=== PATIENT | female | born 1995 | race African-American/Black ===

== ENCOUNTER 2020-02-04 08:30 | Inpatient (IN) ==
[2020-02-08] MEDS ORDERED: ceFAZolin 2,000 MG in PREMIX 1 EACH IV ONE (07:01)
[2020-02-08] MEDS ORDERED: EPINEPHrine 1 MG/ML VIAL ONE (07:01)
[2020-02-08] MEDS ORDERED: DEXAMETHASONE 4 MG/1 ML VIAL ONE (07:01)
[2020-02-08] MEDS ORDERED: BUPIVACAINE SPINAL 0.75% 2 ML AMP SPINAL ONE (07:01)
[2020-02-08] MEDS ORDERED: CITRIC ACID/SODIUM CITRATE 30 ML UDCUP PO ONE (07:01)
[2020-02-08] MEDS ORDERED: BUPIVACAINE MPF 0.25% 30 ML VIAL ONE (07:01)
[2020-02-08] MEDS ORDERED: OXYTOCIN 10 UNIT/ML VIAL IM ONE (07:05)
[2020-02-08] MEDS ORDERED: OXYTOCIN/LR 30 UNIT/1,000 ML BAG IV ONE (07:05)
[2020-02-08] MEDS ORDERED: ONDANSETRON 4 MG/2 ML VIAL ONE (07:07)
[2020-02-08] MEDS ORDERED: LACTATED RINGERS 1,000 ML IV ONE (07:15)
[2020-02-08] MEDS ORDERED: FAMOTIDINE 20 MG/2 ML VIAL IV ONE (07:23)
[2020-02-08 07:28] LABS: Basophils # 0.1 10*3/uL (0.0-0.2); Basophils % 0.4 % (0.0-0.8); Eosinophils # 0.3 10*3/uL (0.0-0.87); Eosinophils % 2.5 % (0.00-10.9); Hematocrit 33.2 VOL% (35.7-47.0); Hemoglobin 10.3 GM/DL (12.0-16.0); Immature Granulocytes % 1.9 %; Immature Granulocytes Absolute 0.26 #; Lymphocytes # 2.9 10*3/uL (1.4-4.0); Lymphocytes % 21.5 % (21.3-54.2); Mean Corpuscular Volume 88.5 FL (87-102); Mean Platelet Volume 11.5 FL (9.6-12.0); Monocytes % 16.2 % (1.7-12.7); Neutrophils % 57.5 % (38.7-73.9); Platelet Count 195 T/CUMM (130-400); Red Blood Count 3.75 MC/CUMM (3.8-5.5); Red Cell Distribution Width 13.8 % (9.3-17.3); White Blood Count 13.4 T/CUMM (4-12)
[2020-02-08] MEDS ORDERED: LACTATED RINGERS 1,000 ML IV SCH ×2 (07:30→10:00)
[2020-02-08 07:40] LABS: Alanine Aminotransferase 35 U/L (13-56); Albumin 2.7 G/DL (3.4-5.0); Alkaline Phosphatase 149 U/L (45-117); Aspartate Amino Transferase 24 U/L (0-37); Bilirubin,Total < 0.39 MG/DL (0.2-1.0); Blood Urea Nitrogen 6 MG/DL (7-18); Calcium 8.6 MG/DL (8.5-10.1); Estimated Glom Filtration Rate 162 ML/MIN; Glucose 92 MG/DL (74-106); Osmolality,Calculated 272.7 MOS/KG (273-304)
[2020-02-08 07:46] LABS: Band Neutrophils 1 % (0-10); Eosinophils 7 % (0-10); Hypochromasia 1+; Lymphocytes 15 % (20-55); Platelet Estimate Adequate; Segmented Neutrophils 62 % (50-85); Total Cells Counted 100
[2020-02-08 07:47] LABS: Microcytosis Slight
[2020-02-08 09:36] LABS: Cord Arterial Blood HCO3 20.5 MMOL/L
[2020-02-08 09:41] LABS: Cord Venous Blood HCO3 21.1 MMOL/L; Cord Venous Blood PCO2 51.3 MMHG; Cord Venous Blood PO2 21.9
[2020-02-08] MEDS ORDERED: OXYTOCIN/LR 20 UNIT/1,000 ML BAG IV ONE (09:45)
[2020-02-08] MEDS ORDERED: ACETAMINOPHEN 325 MG TABLET PO PRN (09:45)
[2020-02-08] MEDS ORDERED: ONDANSETRON 4 MG/2 ML VIAL IV PRN (09:45)
[2020-02-08] MEDS ORDERED: SIMETHICONE CHEW 80 MG TABLET PO PRN (09:45)
[2020-02-08] MEDS ORDERED: RHO(D) IMMUNE GLOBULIN 300 MCG SYRINGE IM ONE (09:45)
[2020-02-08 09:48] LABS: Apearance,Urine CLEAR (Clear); Bilirubin,Urine Negative (Negative); Blood, Urine Negative (Negative); Glucose,Urine (UA) Negative (Negative); Ketones,Urine Negative (Negative); Mucus,Urine Occasional /LPF (Occasional); Nitrite,Urine Negative (Negative); Protein,Urine Negative; RBC,Urine 1 /HPF (0-4); Squamous Epithelial Cell,Urine Occasional /HPF (0-10); Urine Color Yellow (Yellow); Urine Specific Gravity 1.011 (1.001-1.035); Urine Urobilinogen < 2.0 EU/DL (0.2-1.0); WBC,Urine <1 /HPF (0-6)
[2020-02-08] MEDS ORDERED: ceFAZolin 1,000 MG in SYRINGE 1 EACH IV SCH (10:00)
[2020-02-08] MEDS ORDERED: MORPHINE 10 MG/10 ML VIAL ONE (10:14)
[2020-02-08] MEDS ORDERED: fentaNYL 100 MCG/2 ML VIAL ONE (10:14)
[2020-02-08 17:21] LABS: Basophils # 0.1 10*3/uL (0.0-0.2); Basophils % 0.3 % (0.0-0.8); Eosinophils % 0.1 % (0.00-10.9); Hematocrit 32.9 VOL% (35.7-47.0); Hemoglobin 10.3 GM/DL (12.0-16.0); Immature Granulocytes % 1.3 %; Immature Granulocytes Absolute 0.26 #; Lymphocytes # 1.2 10*3/uL (1.4-4.0); Lymphocytes % 6.2 % (21.3-54.2); Mean Corpuscular HGB Conc 31.3 GM/DL (32-36); Mean Corpuscular Volume 87.5 FL (87-102); Mean Platelet Volume 11.3 FL (9.6-12.0); Monocytes % 6.6 % (1.7-12.7); Neutrophils % 85.5 % (38.7-73.9); Platelet Count 167 T/CUMM (130-400); Red Blood Count 3.76 MC/CUMM (3.8-5.5); Red Cell Distribution Width 13.9 % (9.3-17.3); White Blood Count 19.6 T/CUMM (4-12)
[2020-02-08] MEDS: ceFAZolin 1,000 MG in SYRINGE 1 EACH IV SCH (17:25)
[2020-02-08] MEDS: DOCUSATE SODIUM 100 MG CAPSULE PO SCH (20:58)
[2020-02-09] MEDS: ceFAZolin 1,000 MG in SYRINGE 1 EACH IV SCH (00:55)
[2020-02-09] MEDS: IBUPROFEN 800 MG TABLET PO PRN ×2 (06:25→21:41)
[2020-02-09 07:32] LABS: Basophils # 0.1 10*3/uL (0.0-0.2); Basophils % 0.3 % (0.0-0.8); Eosinophils # 0.1 10*3/uL (0.0-0.87); Eosinophils % 0.3 % (0.00-10.9); Hematocrit 29.2 VOL% (35.7-47.0); Hemoglobin 9.1 GM/DL (12.0-16.0); Immature Granulocytes % 1.3 %; Immature Granulocytes Absolute 0.24 #; Lymphocytes % 16.5 % (21.3-54.2); Mean Corpuscular HGB Conc 31.2 GM/DL (32-36); Mean Corpuscular Volume 88.2 FL (87-102); Mean Platelet Volume 11.2 FL (9.6-12.0); Monocytes % 10.4 % (1.7-12.7); Neutrophils % 71.2 % (38.7-73.9); Platelet Count 172 T/CUMM (130-400); Red Blood Count 3.31 MC/CUMM (3.8-5.5); Red Cell Distribution Width 13.9 % (9.3-17.3); White Blood Count 18.1 T/CUMM (4-12)
[2020-02-09] MEDS: DOCUSATE SODIUM 100 MG CAPSULE PO SCH ×2 (08:24→21:41)
[2020-02-09] MEDS: METOCLOPRAMIDE 10 MG TABLET PO SCH ×3 (08:25→23:41)
[2020-02-09] MEDS: MULTIVITAMIN (PRENATAL) TABLET PO SCH (08:25)
[2020-02-09] MEDS: FERROUS SULFATE 325 MG TABLET PO SCH (08:25)
[2020-02-09] MEDS: MAGNESIUM HYDROXIDE SUSP 30 ML UDCUP PO PRN ×2 (13:32→23:41)
[2020-02-09] MEDS ORDERED: MAGNESIUM CITRATE 300 ML BOTTLE PO ONE (22:21)
[2020-02-10] MEDS: MULTIVITAMIN (PRENATAL) TABLET PO SCH (07:30)
[2020-02-10] MEDS: FERROUS SULFATE 325 MG TABLET PO SCH (07:30)
[2020-02-10 07:31] VITALS: BP 134/69
[2020-02-10] MEDS: IBUPROFEN 800 MG TABLET PO PRN (07:35)
[2020-02-10] MEDS: DOCUSATE SODIUM 100 MG CAPSULE PO SCH (08:14)
== END 2020-02-10 12:10 | disposition home or self-care (01) | DRG 540 ==
LOC: N.LD 02-08 06:38 → N.OB 02-08 14:55
PROVIDERS: ADMIT Obstetrics & Gynecology; ATTEND Obstetrics & Gynecology
PROC: LDCSECT (ICD-10-PCS; 2020-02-08 09:12)